=== PATIENT | male | born 1970 | race Caucasian/White ===

== ENCOUNTER → 2018-11-18 | Outpatient (CLI) | payer OTHER ==
--- NOTE | ~2018-11-18 | PFR/MVV ---
[facility] [place] [address] PULMONARY FUNCTION MVV/REPORT Name: DEMETRICEKYREEMARQUISCRIS Ignacia Room #: [facility]#: [id number] ������������������ Admission: 11/18/18 ������������������ Attend Phys: [facility] - Family physician unknown Discharge: ������������������ Date of : 68 Report #: [id number] THIS REPORT FOR: //name// >> SPIROMETRY: (BTPS) Height: in cm Weight: lbs kg Exam Date: PRE-RX POST-RX PRED BEST %PRED BEST %PRED %CHG FVC LITERS . . . . . . FEV1 LITERS . . . . . . FEV1/FVC % . . . . . . HCW08-95% L/Sec . . . . . . PEF L/SEC . . . . . . FEF50/FIF50 UNITLESS . . . . . . MVV L/Min . . . f 1/Min . . . >> LUNG VOLUMES: (BTPS) PRE-RX POST-RX PRED AVG %PRED AVG %PRED %CHG VC Liters . . . . . . TLC Liters . . . . . . RV Liters . . . . . . RV/TLC % . . . . . . FRC PL Liters . . . . . . FRC N2 Liters . . . . . . ERV Liters . . . . . . IC Liters . . . . . . >> DIFFUSION: DLCO ml/Min/mmHg . . . . . . DL Korey ml/Min/mmHg . . . . . . DLCO/VA ml/Min/mmHg . . . . . . VA Liters . . . . . . COMMENTS: COMMENTS: >> RESISTANCE: [facility] [address] [place] [address] PULMONARY FUNCTION MVV/REPORT Name: MARYMARQUISCRIS Ignacia Room #: [facility]#: [id number] ������������������ Admission: 11/18/18 ������������������ Attend Phys: [facility] - Family physician unknown Discharge: ������������������ Date of : 68 Report #: [id number] PRE-RX PRED AVG %PRED Raw Total cmH20/L/Sec . . . Raw Insp cmH20/L/Sec . . . Raw Exp cmH20/L/Sec . . . Raw cmH20/L/Sec . . . Gaw L/Sec/cmH20 . . . sRaw cmH20 Sec . . . sGaw l/cmH20 Sec . . . Vtq Liters . . . # = OUTSIDE 95% CONFIDENCE INTERVAL CALIBRATION: PRED: 3.00 ACTUAL: EXP 3.01 INSP 3.02 [id number] [facility]- [id number] >> INTERPRETATION/IMPRESSION: CC: ASHLEY unknown DATE OF SERVICE: 11/18/2018 SPIROMETRY: FEV1 is 3.52 or 3 liters (85%), FVC is 4.57 liters (96%). FEV1/FVC ratio is 66%. Post-bronchodilator response is significant, FEV1 increased to 3.67 liters with a 22% change. Total lung capacity 6.40 liters (97%). Residual volume is 1.83 liters (86%). Diffusing capacity is 87%. IMPRESSION: Pulmonary function studies are consistent with a mild obstructive airflow defect with a significant response to bronchodilator therapy. Lung volumes are normal. Diffusing capacity is normal. ��������������������������������������������� ���������������������������������������� By: ��������������������������������������������� Lul Meza MD /nt
== END ==
LOC: PUL 11-09 10:23
DX: J40 Bronchitis, not specified as acute or chronic (principal)